=== PATIENT | male | born 2005 | race Asian ===

== ENCOUNTER 2024-11-23 09:08 | Emergency (ER) | payer OTHER ==
[~2024-11-23] VITALS: Ht 160 cm; Wt 64.2 kg
[2024-11-23 10:17] LABS: PLATELET COUNT, AUTOMATED 251 10^3/uL (150-450)
[2024-11-23 10:55] LABS: CALCIUM LEVEL 9.2 MG/DL (8.5-10.1); CARBON DIOXIDE LEVEL 26 MMOL/L (20-31); CHLORIDE LEVEL 107 MMOL/L (98-107); CREATININE FOR GFR 0.81 MG/DL (0.70-1.30); GLOMERULAR FILTRATION RATE > 90.0 (>60); POTASSIUM SERUM 4.7 MMOL/L (3.5-5.1); SODIUM LEVEL 142 MMOL/L (136-145)
[2024-11-23 11:13] LABS: CPK CREATINE PHOSPHOKINASE 19871 U/L (46-171)
[2024-11-23] MEDS: NS (Normal Saline) 0.9% 1,000 ML IV ONE ×2 (11:45)
[2024-11-23] MEDS: ACETAMINOPHEN *IV* 1,000 MG in IV 1 EA IV ONE (12:03)
[2024-11-23 12:22] LABS: ALT/SGPT 92 U/L (7.0-40); AST/SGOT 274 U/L (<34)
[2024-11-23 13:20] LABS: APPEARANCE, URINE CLEAR (CLEAR); BACTERIA, URINE AUTO NEGATIVE (NEGATIVE); BILIRUBIN, URINE AUTO NEGATIVE (NEGATIVE); BLOOD, URINE BLOOD NEGATIVE (NEGATIVE); GLUCOSE, URINE (UA) AUTO NEGATIVE (NEGATIVE); KETONE, URINE AUTO NEGATIVE (NEGATIVE); LEUKOCYTE ESTERASE, URINE AUTO NEGATIVE (NEGATIVE); MUCUS, URINE SMALL (NEGATIVE); NITRITE, URINE AUTO NEGATIVE (NEGATIVE); PROTEIN, URINE AUTO NEGATIVE (NEGATIVE); RBC, URINE AUTO 1 /HPF (0-3); SPECIFIC GRAVITY URINE AUTO 1.025 (1.002-1.035); SQUAMOUS EPITHELIAL CELL UR AU 0 /HPF (0-6); UROBILINOGEN, URINE AUTO 0.2 mg/dL (0.0-2.0); WBC, URINE AUTO 3 /HPF (0-3)
[2024-11-23 16:13] VITALS: BP 122/63; TEMP 98.2; O2SAT 100
== END 2024-11-23 16:23 | disposition home or self-care (01) ==
LOC: M ED 09:08
DX: T75.4XXA Electrocution, initial encounter (principal); M62.82 Rhabdomyolysis; R00.1 Bradycardia, unspecified; Y92.89 Other specified places as the place of occurrence of the external cause; Y93.89 Activity, other specified; Y99.1 Military activity
CPT/HCPCS: 80048; 80076; 81001; 81002; 82550; 83605; 85027; 93005; 93041; 96365; 99285; J0131